=== PATIENT | female | born 1975 | race Caucasian/White ===

== ENCOUNTER 2018-04-17 14:51 | Emergency (ER) | payer OTHER, MEDICAID, SELFPAY ==
[2018-04-17 15:01] VITALS: BP 109/67; PULSE 69; RESP 20; TEMP 36.7; O2SAT 98; BMI 26.9
--- NOTE | 2018-04-17 15:01 | PC.NURSE ---
Dr Cartwright aware of pts sx
--- NOTE | 2018-04-17 15:16 | PC.NURSE ---
Pt denies chest pain, dizziness, or confusion, but states she feels foggy.
[2018-04-17 16:00] VITALS: BP 99/59; PULSE 75; RESP 16; O2SAT 98
--- NOTE | 2018-04-17 16:00 | DI.CT.S_ITS ---
PROCEDURE: CT HEAD/BRAIN WO CON INDICATIONS: left facial droop with left arm numbness no tpa TECHNIQUE: Noncontrast 4.5 mm thick angled axial sections acquired from the foramen magnum to the vertex, with coronal and sagittal reformats. For radiation dose reduction, the following was used: automated exposure control, adjustment of mA and/or kV according to patient size. COMPARISON: None. FINDINGS: Image quality: Excellent. CSF spaces: Basal cisterns are patent. No extra-axial fluid collections. Ventricles are normal in size and shape. Brain: No midline shift. No intracranial masses or hemorrhage. Wooten-white matter interface is normal. Skull and face: Calvarium and visualized facial bones are intact, without suspicious lesions. Sinuses: Visualized sinuses and mastoids are clear. IMPRESSION: No acute intracranial process. Dictated by: Jason Fowler M.D. on 04/17/2018 at 16:31 Approved by: Jason Fowler M.D. on 04/17/2018 at 16:32
--- NOTE | 2018-04-17 16:02 | DI.MRI.S_ITS ---
PROCEDURE: MR STROKE Pre- and post-contrast brain MRI, non-contrast brain MR angiogram, pre- and postcontrast neck MR angiogram INDICATIONS: left facial droop with left arm numbness no tPA candidate TECHNIQUE: Brain: Noncontrast axial T1 spin echo, axial T2 fast spin echo, sagittal and axial FLAIR, coronal T2 fast spin echo, axial gradient echo, axial diffusion and ADC through the brain. After the administration of contrast, axial 3D VIBE of the cranial vasculature and brain. Brain MRA: Non-contrast 3-D time of flight MR angiogram, with multiple qkesfcl-egswttrdg-cytqvvebzz (MIP) reformats performed. Neck MRA: Axial and sagittal TruFISP through the neck. Coronal dynamic MR angiogram during administration of contrast in the arterial and venous phases, with 3-dimenstional xhccxmr-mwajzxdee-otuanxcwbj (MIP) reformats constructed from subtraction images. COMPARISON: [facility], CT, CT HEAD/BRAIN WO CON, 04/17/2018, 16:06. FINDINGS: Image quality: Diagnostic. BRAIN: CSF spaces: Ventricles are normal in size and shape. Basal cisterns are patent. No extra-axial fluid collections. Brain: No intracranial bleeds or mass effects. Wooten-white matter interface is normal. Diffusion weighted images show no acute ischemic insults. Brainstem appears normal. Normal intravascular flow voids are present. No abnormal intracranial enhancement. Skull and face: Calvarial marrow signal is normal. Orbits appear normal. Sinuses: Sinuses and mastoids are clear. BRAIN MR ANGIOGRAM: Anterior circulation: Intracranial internal carotid arteries are normal in size and enhancement. The flow within the paired anterior cerebral arteries is normal and symmetric. The flow within the middle cerebral arteries is normal and symmetric. The anterior communicating artery is seen. No stenoses, occlusions, or aneurysms. Posterior circulation: The visualized portions of the vertebral arteries demonstrate normal caliber, and join to form a normal appearing basilar artery. The flow within the posterior cerebral arteries is normal and symmetric. No stenoses, occlusions, or aneurysms. NECK MR ANGIOGRAM: Carotids: Great vessels demonstrate a conventional anatomy as they arise from the aortic arch. The origins of the common carotid arteries appear patent. The calibers and courses of both common carotid arteries are normal. The bifurcation regions appear normal bilaterally. The internal carotid arteries demonstrate normal course and caliber. Posterior circulation: The origins of the vertebral arteries appear patent. More superior portions of both vertebral arteries demonstrate normal course and caliber, and join to form a normal appearing basilar artery. Miscellaneous: Subclavian arteries appear patent. Pre-contrast images through the neck show no soft tissue abnormalities. IMPRESSION: BRAIN MRI: 1. No acute intracranial hemorrhage or ischemia. 2. No parenchymal abnormalities or abnormal parenchymal enhancement. BRAIN MR ANGIOGRAM: Intracranial vessels are widely patent without areas of occlusion, high-grade narrowing, or vascular malformations. NECK MR ANGIOGRAM: Unremarkable vertebral and carotid arteries within the neck. No areas of narrowing, occlusion, or vascular malformation. Dictated by: Vasyl Cabral M.D. on 04/17/2018 at 16:08 Approved by: Vasyl Cabral M.D. on 04/17/2018 at 16:13
[2018-04-17 16:09] LABS: Hematocrit 37.7 % (36-46); Hemoglobin 12.7 g/dL (12.0-16.0); Mean Corpuscular HGB Conc 33.8 % (30-36); Mean Corpuscular Hemoglobin 28.2 PG (26-34); Mean Corpuscular Volume 83.6 fL (80-100); Platelet Count 337 X10^3/uL (150-400); Red Blood Cell Count 4.51 X10^6/uL (4.0-5.2); Red Cell Distribution Width 12.6 % (11.6-14.8); White Blood Cell Count 6.5 X10^3/uL (4.5-11.0)
[2018-04-17 16:11] LABS: INR 1.1 (0.9-1.3); Prothrombin Time 11.4 SECONDS (10.1-12.7)
[2018-04-17 16:14] LABS: PTT Partial Thromboplastin Tim 31 SECONDS (26.4-36.2)
[2018-04-17 16:15] LABS: Morphology Comment Normal Morphology; Neutrophils Absolute Manual 4290 /uL (3000-5900); RBC Morphology Normal Morphology; Total Cells Counted 100
[2018-04-17 16:16] LABS: Alanine Aminotransferase 34 IU/L (9-52); Albumin 4.5 g/dL (3.5-5.0); Albumin Globulin Ratio 1.5 (1.0-2.8); Alkaline Phosphatase 65 U/L (38-126); Aspartate Aminotransferase 22 IU/L (14-36); BUN Creatinine Ratio 21.4 (6-22); Bilirubin Total 0.6 mg/dL (0.2-1.3); Blood Urea Nitrogen 15 mg/dL (7-17); Calcium 8.6 mg/dL (8.4-10.2); Carbon Dioxide 22 mmol/L (22-32); Chloride 107 mmol/L (98-107); Estimated Glomerular Filt Rate > 60.0 mL/min (>60); Glucose 100 mg/dL (70-100); HEMOLYSIS < 15 (0-50); Potassium 3.6 mmol/L (3.4-5.1); Sodium 143 mmol/L (137-145); Total Protein 7.5 g/dL (6.3-8.2)
[2018-04-17 17:09] VITALS: BP 104/62; PULSE 88; RESP 15
--- NOTE | 2018-04-17 17:15 | ED.NEUROSD ---
HPI - Neuro Symptoms/Deficit General Chief Complaint: Neuro Symptoms/Deficit Stated Complaint: LEFT SIDE OF FACE DROOPY,ARM TINGLY Time Seen by Provider: 04/17/18 15:30 Source: patient and family Mode of arrival: ambulatory Limitations: no limitations History of Present Illness HPI Narrative: Patient is a 42-year-old female who presents with left facial drooping and left eye twitching along with left arm numbness. She woke up this morning in her noticed that her left eye was blinking more slowly than her right eye. She has had some left facial droop. She started to notice that she had taste buds that were different all while she was eating her sandwich at lunch today. She then started to notice that her left arm became numb and weaker than her right. No difficulty speaking or walking. She was sent here for further evaluation. She is able to close her eyes fully. She has no blurry or double vision. On Anticoagulants: No Related Data Home Medications Medication Instructions Recorded Confirmed Control Pill 1 tab PO DAILY 04/17/18 04/17/18 Previous Rx's Medication Instructions Recorded artifi.tears(hypromellose)(PF) 1 drop EYE-BOTH Q4-6H PRN #10 ml NS 04/17/18 prednisone 50 mg PO DAILY 5 Days tab 04/17/18 Allergies Allergy/AdvReac Type Severity Reaction Status Date / Time Penicillins Allergy Verified 04/17/18 15:49 Review of Systems Review of Systems All systems reviewed & are unremarkable except as noted in HPI and below Constitutional Denies chills, Denies fever(s), Denies lethargy and Denies weakness Eyes Reports as per HPI ENT Ears, Nose, Mouth, and Throat: Denies change in voice, Denies neck pain and Denies sore throat Cardiovascular Denies chest pain, Denies irregular heart rhythm, Denies lightheadedness, Denies palpitations, Denies dyspnea, Denies dyspnea on exertion and Denies orthopnea Respiratory Denies cough, Denies dyspnea, Denies dyspnea on exertion and Denies wheezing Gastrointestinal Gastrointestinal: Denies abdominal pain, Denies change in bowel habits, Denies diarrhea, Denies nausea and Denies vomiting Musculoskeletal Denies deformity, Denies joint swelling and Denies neck pain Neurologic Reports system reviewed and no additional complaints, except as docu, Reports as per HPI and Denies weakness Endocrine Denies palpitations Allergic/Immunologic Denies wheezing [facility] Social History Smoking Status: Never smoker Exam Initial Vital Signs Initial Vital Signs: Vital Signs Temperature 98.0 F 04/17/18 15:01 Pulse Rate 69 04/17/18 15:01 Respiratory Rate 20 04/17/18 15:01 Blood Pressure 109/67 04/17/18 15:01 Pulse Oximetry 98 04/17/18 15:01 Const General: cooperative and well developed Nutritional Appearance: well nourished Orientation: alert, awake, oriented x3 and not confused [facility] Head: other (For head equal bilaterally eye brows equal bilaterally) Ears: external ears normal Face and sinus: face asymmetric (Left facial drooping with flattening of nasal fold) Eyes Visual Vu: normal visual vu by confrontation Alignment and Position: alignment normal Eyelids: eyelid abnormality (Able to close left eye but not as tight as the right) Pupils: PERRL EOM: EOM intact bilaterally Neck Neck: full ROM and no meningeal signs Resp Effort & Inspection: normal respiratory effort, able to speak in complete sentences, no respiratory distress and no use of accessory muscles Auscultation: clear to auscultation bilaterally, no rales, no rhonchi and no wheezes Cardio Rate: regular rate Rhythm: regular rhythm Heart Sounds: no click, no gallops, no murmurs and no rubs Pulses: normal peripheral pulses GI Inspection: non-distended Palpation: soft, no hepatosplenomegaly, No guarding, No pulsatile mass and No tender Auscultation: normal bowel sounds Skin General: no rashes or lesions noted, No jaundice and No petechiae Neuro General: alert, oriented x3, gait normal and no focal motor deficits Cranial Nerves: CN's II-XI intact bilaterally and EOM intact bilaterally Speech: speech normal Motor: muscle tone normal throughout and strength 5/5 throughout Sensory Exam: no sensory deficits noted Coordination: xieeeh-py-ykhl test normal and xxmv-it-pcsc test normal Extrem General: normal to inspection, full ROM and no clubbing, cyanosis or edema Scores NIH Stroke Scale Level of Conciousness: Alert, keenly responsive Ask month/age: Answers both questions correctly. Open/close eyes, close hand: Performs both tasks correctly Best gaze horizontal: Normal Visual vu: No visual loss Facial palsy: Minor paralysis, flattened nasolabial fold, asymmetry on smiling Left arm drift: No drift for full 10 sec Right arm drift: No drift for full 10 sec Left leg drift: No drift for full 10 sec Right leg drift: No drift for full 10 sec Limb ataxia: Absent Sensory on face/arms/legs: Normal, no sensory loss Best language: No aphasia, normal Dysarthria: Normal Extinction or inattention: No abnormality Total NIH Stroke scale score: 1 Course Orders Ordered: ED Orders 04/17/18 15:20 Complete Blood Count MAN DIFF Stat Comprehensive Metabolic Panel Stat Partial Thromboplastin Time Stat Prothrombin Time INR Stat 04/17/18 16:00 CT head/brain wo con Stat EKG-12 Lead Stat 04/17/18 16:02 MR stroke Stat Vital Signs - 8 hr 04/17/18 15:01 04/17/18 16:00 04/17/18 17:09 Temperature 98.0 F Pulse Rate 69 75 88 Respiratory Rate 20 16 15 Blood Pressure 109/67 Blood Pressure [Left Arm] 99/59 L 104/62 Pulse Oximetry 98 98 04/17/18 17:35 Temperature Pulse Rate 71 Respiratory Rate 13 Blood Pressure Blood Pressure [Left Arm] 106/66 Pulse Oximetry 99 MDM - Neuro Symptoms/Deficit Lab Data Result diagrams: 04/17/18 15:20 04/17/18 15:20 Lab Results 04/17/18 04/17/18 04/17/18 Range/Units 15:20 15:20 15:20 WBC 6.5 (4.5-11.0) X10^3/uL RBC 4.51 (4.0-5.2) X10^6/uL Hgb 12.7 (12.0-16.0) g/dL Hct 37.7 (36-46) % MCV 83.6 (80-100) fL MCH 28.2 (26-34) PG MCHC 33.8 (30-36) % RDW 12.6 (11.6-14.8) % Plt Count 337 (150-400) X10^3/uL Total Counted 100 Seg Neutrophils % 66.0 (38-70) % Lymphocytes % (Manual) 22.0 L (25-45) % Monocytes % (Manual) 8.0 (2-11) % Eosinophils % (Manual) 4.0 (2-4) % Neutrophils # (Manual) 4290 (5634-0932) /uL Differential Comment Normal morphology RBC Morphology Normal morphology PT 11.4 (10.1-12.7) SECONDS INR 1.1 (0.9-1.3) APTT 31 (26.4-36.2) SECONDS Sodium 143 (137-145) mmol/L Potassium 3.6 (3.4-5.1) mmol/L Chloride 107 (98-107) mmol/L Carbon Dioxide 22 (22-32) mmol/L BUN 15 (7-17) mg/dL Creatinine 0.70 (0.52-1.04) mg/dL Estimated GFR > 60.0 (>60) mL/min BUN/Creatinine Ratio 21.4 (6-22) Glucose 100 (70-100) mg/dL Calcium 8.6 (8.4-10.2) mg/dL Total Bilirubin 0.6 (0.2-1.3) mg/dL AST 22 (14-36) IU/L ALT 34 (9-52) IU/L Alkaline Phosphatase 65 (38-126) U/L Total Protein 7.5 (6.3-8.2) g/dL Albumin 4.5 (3.5-5.0) g/dL Globulin 3.0 (1.7-4.1) g/dL Albumin/Globulin Ratio 1.5 (1.0-2.8) Imaging Data CT scan - head: Radiologist's impression: PROCEDURE: CT HEAD/BRAIN WO CON INDICATIONS: left facial droop with left arm numbness no tpa TECHNIQUE: Noncontrast 4.5 mm thick angled axial sections acquired from the foramen magnum to the vertex, with coronal and sagittal reformats. For radiation dose reduction, the following was used: automated exposure control, adjustment of mA and/or kV according to patient size. COMPARISON: None. FINDINGS: Image quality: Excellent. CSF spaces: Basal cisterns are patent. No extra-axial fluid collections. Ventricles are normal in size and shape. Brain: No midline shift. No intracranial masses or hemorrhage. Wooten-white matter interface is normal. Skull and face: Calvarium and visualized facial bones are intact, without suspicious lesions. Sinuses: Visualized sinuses and mastoids are clear. IMPRESSION: No acute intracranial process. MRI stroke: Radiologist's impression: PROCEDURE: MR STROKE Pre- and post-contrast brain MRI, non-contrast brain MR angiogram, pre- and postcontrast neck MR angiogram INDICATIONS: left facial droop with left arm numbness no tPA candidate TECHNIQUE: Brain: Noncontrast axial T1 spin echo, axial T2 fast spin echo, sagittal and axial FLAIR, coronal T2 fast spin echo, axial gradient echo, axial diffusion and ADC through the brain. After the administration of contrast, axial 3D VIBE of the cranial vasculature and brain. Brain MRA: Non-contrast 3-D time of flight MR angiogram, with multiple saedxse-lrpuhilts-valjofxkzt (MIP) reformats performed. Neck MRA: Axial and sagittal TruFISP through the neck. Coronal dynamic MR angiogram during administration of contrast in the arterial and venous phases, with 3-dimenstional lhxavyb-magpnolir-oxurqaxpnm (MIP) reformats constructed from subtraction images. COMPARISON: [facility], CT, CT HEAD/BRAIN WO CON, 04/17/2018, 16:06. FINDINGS: Image quality: Diagnostic. BRAIN: CSF spaces: Ventricles are normal in size and shape. Basal cisterns are patent. No extra-axial fluid collections. Brain: No intracranial bleeds or mass effects. Wooten-white matter interface is normal. Diffusion weighted images show no acute ischemic insults. Brainstem appears normal. Normal intravascular flow voids are present. No abnormal intracranial enhancement. Skull and face: Calvarial marrow signal is normal. Orbits appear normal. Sinuses: Sinuses and mastoids are clear. BRAIN MR ANGIOGRAM: Anterior circulation: Intracranial internal carotid arteries are normal in size and enhancement. The flow within the paired anterior cerebral arteries is normal and symmetric. The flow within the middle cerebral arteries is normal and symmetric. The anterior communicating artery is seen. No stenoses, occlusions, or aneurysms. Posterior circulation: The visualized portions of the vertebral arteries demonstrate normal caliber, and join to form a normal appearing basilar artery. The flow within the posterior cerebral arteries is normal and symmetric. No stenoses, occlusions, or aneurysms. NECK MR ANGIOGRAM: Carotids: Great vessels demonstrate a conventional anatomy as they arise from the aortic arch. The origins of the common carotid arteries appear patent. The calibers and courses of both common carotid arteries are normal. The bifurcation regions appear normal bilaterally. The internal carotid arteries demonstrate normal course and caliber. Posterior circulation: The origins of the vertebral arteries appear patent. More superior portions of both vertebral arteries demonstrate normal course and caliber, and join to form a normal appearing basilar artery. Miscellaneous: Subclavian arteries appear patent. Pre-contrast images through the neck show no soft tissue abnormalities. IMPRESSION: BRAIN MRI: 1. No acute intracranial hemorrhage or ischemia. 2. No parenchymal abnormalities or abnormal parenchymal enhancement. BRAIN MR ANGIOGRAM: Intracranial vessels are widely patent without areas of occlusion, high-grade narrowing, or vascular malformations. NECK MR ANGIOGRAM: Unremarkable vertebral and carotid arteries within the neck. No areas of narrowing, occlusion, or vascular malformation. ECG Data Attestation: I personally reviewed and interpreted this ECG as follows: Prior ECG tracings: not available for review Interpretation: Normal sinus rhythm rate 68 no acute ischemia no ST changes MDM Narrative Medical decision making narrative: On reassessment patient is still able to close her left eye but it really is not as tight as the right eye. He believes this to be more of Espinosa's rather than a CVA. Her MRI is normal. 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 Sensation is intact and equal on both sides. Her left eye is definitely in blinking more slowly than her right. This really seemed more of a Espinosa's palsy presentation rather than CVA. I have discussed both options with patient and . The she has had a complete workup. Have been addressed. She is out of the window for tPA, no large vessel occlusion been identified, or any occlusion for that matter. Discharge Plan Departure Patient Disposition: Home, Self-Care Clinical Impression: Espinosa's palsy Discharge Date/Time: 04/17/18 18:33 Interventions: ED Discharge Assessment Last Done: 04/17/18 18:33 Instructions: DI for Espinosa's Palsy Activity Restrictions/Additional Instructions: *You have been diagnosed with Espinosa's palsy *What to do: Should spontaneously improve in the next 2-3 weeks *Continue to take medications as directed -use eye drops while awake -prednisone once a day for the next 5 days helps with inflammation of nerve *Follow up with your primary care provider in 2-3 days *Return to ER if you should have increasing weakness of arm or hand, or any extremity or any new, worsening or concerning symptoms Prescriptions: New prednisone 50 mg tablet 50 mg PO DAILY 5 Days RF: 0 artifi.tears(hypromellose)(PF) 0.3 % drops 1 drop EYE-BOTH Q4-6H PRN (Reason: dry eye(s)) Qty: 10 RF: 0 No Action Control Pill 1 tab PO DAILY RF: 0 Referrals: Andre Lozano MD [Primary Care Provider] -
[2018-04-17 17:35] VITALS: BP 106/66; PULSE 71; RESP 13; O2SAT 99
[2018-04-17 18:20] VITALS: BP 106/71; PULSE 72; O2SAT 98
== END 2018-04-17 18:33 | disposition home or self-care (01) ==
PROVIDERS: Emergency Provider Emergency Medicine; PCP Family Medicine
DX: G51.0 Bell's palsy (principal)
CPT/HCPCS: 36591; 70450; 70553; 80053; 81003; 81025; 85025; 85610; 85730; 93005; 99283; 99285; 99291; A9579

== ENCOUNTER → 2020-09-08 09:10 | Outpatient (CLI) | payer OTHER, MEDICAID, SELFPAY ==
--- NOTE | 2020-09-08 | DI.MG.S_ITS ---
BILATERAL DIGITAL DIAGNOSTIC MAMMOGRAM 3D/2D WITH AUGMENTATION: 09/08/2020 CLINICAL: Left breast lump. Baseline exam. Baseline exam. No prior exams were available for comparison. The tissue of both breasts is heterogeneously dense. This may lower the sensitivity of mammography. Patient is breast feeding. Bilateral retropectoral saline implants are intact. No significant masses, calcifications, or other findings are seen in either breast. No mass in the region of the palpable abnormality in the upper inner left breast. IMPRESSION: INCOMPLETE: NEEDS ADDITIONAL IMAGING EVALUATION No mammographic evidence of malignancy. A targeted ultrasound is recommended and will immediately follow for the left breast palpable abnormality. This exam was interpreted at Station ID: [id number]. NOTE: For mammograms, a report in lay terms will be sent to the patient. Approximately 15% of breast malignancies will not be visualized mammographically. In the management of a palpable breast mass, a negative mammogram must not discourage biopsy of a clinically suspicious lesion. Electronically Signed By: Kiko Gramajo M.D. slc/:09/08/2020 11:08:23 ACR BI-RADS Category 0: Incomplete [id number]
--- NOTE | 2020-09-08 10:41 | DI.US.S_ITS ---
Patient Name: ALLAN LOCKE date: 1975 Sex: F Attending Physician: Eric Indications: Date: 09/08/2020 10:49 At the request of: VIOLETA BENNETT Procedure: US breast LT limited LIMITED ULTRASOUND OF LEFT BREAST: 09/08/2020 CLINICAL: Palpable left breast lump and focal pain. Comparison is made to exam dated: 09/08/2020 [facility]. Color flow and real-time ultrasound of the left breast 10 o'clock, and retroareolar regions were performed. Wooten scale images of the real-time examination were reviewed. No significant abnormalities were seen sonographically in the left breast in the region of the palpable abnormality. No mass or galactocele. IMPRESSION: NEGATIVE There is no sonographic evidence of malignancy. No mass or galactocele. A 1 year screening mammogram is recommended. Exam findings were conveyed to the patient. Patient is advised to monitor for significant change. This exam was interpreted at Station ID: [id number]. Electronically Signed By: Kiko Gramajo M.D. slc/:09/08/2020 11:30:09 letter sent: Normal Exam Ultrasound BI-RADS: 1 Negative
== END ==
PROVIDERS: PCP Nurse Practitioner Family; Referring Provider Nurse Practitioner Family; Visit Provider Nurse Practitioner Family
DX: R92.8 Other abnormal and inconclusive findings on diagnostic imaging of breast (principal); N63.22 Unspecified lump in the left breast, upper inner quadrant; Z98.82 Breast implant status
CPT/HCPCS: 76642; 77066; G0279

== ENCOUNTER → 2021-09-07 10:45 | Outpatient (CLI) | payer OTHER, MEDICAID, SELFPAY ==
--- NOTE | 2021-09-07 10:51 | DI.CT.S_ITS ---
PROCEDURE: CT ANGIO CHEST INDICATIONS: CHEST PAIN TECHNIQUE: After the administration of intravenous contrast, 2 mm thick sections acquired from the pulmonary apices to the posterior costophrenic angles. 3-dimensional maximum intensity projection (MIP) coronal and sagittal reformats were then acquired through the thorax. For radiation dose reduction, the following was used: automated exposure control, adjustment of mA and/or kV according to patient size. COMPARISON: None. FINDINGS: Image quality: Excellent. Pulmonary arteries: Pulmonary arteries are normal in size, and demonstrate no intraluminal filling defects to suggest central pulmonary embolism. Lungs and pleura: There is a 4 mm nodule in the right middle lobe (series 6, image 164). A 2 mm nodule is seen in the right major fissure (series 6, image 238). Lungs are clear. No pleural effusions or pneumothorax. Central and peripheral airways are patent. Mediastinum: Heart size is normal, without pericardial effusion. No mediastinal or hilar adenopathy. Thoracic aorta is normal in caliber and enhancement. Esophagus is normal in caliber. Small hiatal hernia. Bones and chest wall: No suspicious bony lesions. Ribs and thoracic spine appear intact throughout. Thyroid gland is normal. No axillary or supraclavicular adenopathy by size criteria. A prominent subcentimeter right axillary lymph node is likely reactive. Note is made of bilateral breast implants. Abdomen: Visualized upper abdominal solid organs appear normal in the early arterial phase of enhancement. IMPRESSION: 1. No evidence for pulmonary embolism. 2. There is a 4 mm nodule in the right middle lobe and a 2 mm nodule in the right middle fissure. Please see enclosed follow-up recommendation. 3. Small hiatal hernia. Fleischner Society criteria for SOLID lung nodule followup. Nodule size (mm)Low-risk patientHigh-risk patient?4No follow-up neededFollow-up at 12 mo; if no change, no further follow-up>9-5Dcyyhw-um CT at 12 mo; if no change, no further follow-up needed.Initial follow-up CT at 6-12 mo, then 18-24 mo if no change. >6-8Initial follow-up CT at 6-12 mo, then 18-24 mo if no change. Initial follow-up CT at 3-6 mo, then 9-12 mo and 24 mo if no change. >8Follow-up CT at 3, 9, 24 mo. Or PET and/or biopsy.Same as for low-risk pts. Dictated by: Brenda Nur M.D. on 09/07/2021 at 11:53 Approved by: Brenda Nur M.D. on 09/07/2021 at 12:02
== END ==
PROVIDERS: PCP Nurse Practitioner Family; Referring Provider Family Medicine; Visit Provider Family Medicine
DX: R07.9 Chest pain, unspecified (principal); R91.1 Solitary pulmonary nodule; K44.9 Diaphragmatic hernia without obstruction or gangrene
CPT/HCPCS: 71275; Q9967

== ENCOUNTER 2023-02-04 18:58 | Emergency (ER) | payer OTHER, MEDICAID, SELFPAY ==
[2023-02-04] VITALS (7 sets, daily range): BP systolic 96–118; BP diastolic 51–83; PULSE 73–84; RESP 14–16; TEMP 36.2; O2SAT 96–100; BMI 27.6
--- NOTE | 2023-02-05 00:41 | ED.ALLEREA ---
HPI - Allergic Reaction General Chief complaint: Allergic Reaction Stated complaint: allergic reaction Time Seen by Provider: 02/04/23 19:01 Source: patient and EMS Mode of arrival: EMS History of Present Illness HPI narrative: 47-year-old female nonsmoker with noncontributory medical history presents by air medical transport for evaluation a significant allergic reaction earlier today. It is unclear exactly what her trigger was but about 1 hour prior to her arrival here she developed widespread hives, most notable on upper extremities chest and back as well as significant swelling of her face and lips and felt some fullness in her throat. She was given epinephrine, diphenhydramine and an H2 quiana prior to her arrival and symptoms had nearly completely resolved. At no point has she had any GI symptoms such as nausea, vomiting or diarrhea. She denies any history of anaphylaxis. She states she was exposed to known new foods, pets, lotions, soaps or other obvious trigger Related Data Home Medications Medication Instructions Recorded Confirmed Control Pill 1 tab PO DAILY 04/17/18 04/17/18 Previous Rx's Medication Instructions Recorded artifi.tears(hypromellose)(PF) 0.3 1 drop EYE-BOTH Q4-6H PRN dry 04/17/18 % eye drops eye(s) #10 mL epinephrine 0.3 mg/0.3 mL 0.3 mg (0.3 mL) IM Q5-15M PRN 02/05/23 injection, auto-injector (EpiPen anaphylaxis #2 ea 2-Benjamin) prednisone 10 mg tablet See Rx Instructions .Route 02/05/23 .COMPLEX #30 tabs Allergies Allergy/AdvReac Type Severity Reaction Status Date / Time Penicillins Allergy Verified 04/17/18 15:49 Review of Systems Review of Systems Narrative: GENERAL: Denies chills, fatigue, malaise, fever, sweats. HEENT: See HPI RESPIRATORY: Denies dyspnea, cough, wheezing, hemoptysis, sputum. CARDIOVASCULAR: Denies chest pain, palpitations, orthopnea, edema, GASTROINTESTINAL: Denies nausea, vomiting, abdominal pain, diarrhea, constipation, melena. : Denies dysuria, frequency, incontinence, hematuria, urinary retention. MUSCULOSKELETAL: denies weakness, joint pain, or bony pain SKIN: See HPI NEUROLOGIC: Denies weakness, headache, numbness, change in speech, confusion, seizures, incoordination. PSYCHIATRIC: No concerning psychosocial issues. 12 point review of systems is negative except for those stated above Patient History Social History Smoking Status: Never smoker Smoking Status: Never smoker alcohol intake frequency: 0-2 drinks per day Substance Use Type: does not use Exam Narrative Exam Narrative: GENERAL: [47] year old patient appears stated age. Well-developed patient, in mild distress. HEAD: Atraumatic. Normocephalic. EYES: Pupils equal round and reactive. Extraocular motions intact. No scleral icterus. No injection or drainage. ENT: Nose without bleeding, purulent drainage. Throat without erythema, tonsillar hypertrophy or exudate. Airway patent. NECK: Trachea midline. Non tender CARDIOVASCULAR: Regular rate and rhythm without murmurs, gallops, or rubs. RESPIRATORY: Clear to auscultation. Breath sounds equal bilaterally. No wheezes, rales, or rhonchi. GASTROINTESTINAL: Abdomen soft, non-tender, nondistended. EXTREMITIES: No edema or joint tenderness. BACK: Nontender without deformity or crepitance. No flank tenderness. NEURO: AOx3. SKIN: No rash or erythema of visible areas Initial Vital Signs Initial Vital Signs: Vital Signs Temperature 97.1 F L 02/04/23 19:00 Pulse Rate 84 02/04/23 19:00 Respiratory Rate 16 02/04/23 19:00 Blood Pressure 118/81 02/04/23 19:00 Pulse Oximetry 99 02/04/23 19:00 Oxygen Delivery Method Room Air 02/04/23 19:00 Course Vital Signs Vital signs: Vital Signs - 8 hr 02/04/23 19:00 02/04/23 19:03 02/04/23 19:04 Temperature 97.1 F L Pulse Rate 84 83 Respiratory Rate 16 Blood Pressure 118/81 118/83 Pulse Oximetry 99 96 Oxygen Delivery Method Room Air 02/04/23 19:04 02/04/23 19:30 02/04/23 19:31 Temperature Pulse Rate 77 79 Respiratory Rate Blood Pressure 96/51 L Pulse Oximetry 100 97 Oxygen Delivery Method 02/04/23 19:31 02/04/23 20:00 02/04/23 20:00 Temperature Pulse Rate 79 76 Respiratory Rate Blood Pressure 106/61 Pulse Oximetry 97 97 Oxygen Delivery Method 02/04/23 20:30 02/04/23 20:30 Temperature Pulse Rate 73 Respiratory Rate 14 Blood Pressure 100/59 L Pulse Oximetry 98 Oxygen Delivery Method Room Air MDM - Allergic Reaction MDM Narrative Medical decision making narrative: CC: 47F with anaphylaxis, largely resolved prior to arrival Complicating co-morbidities: none known Data collected from: Patient Medical records reviewed: Prior notes reviewed in our EMR Differential considered, but not limited to: anaphylaxis vs. other Exam documented above, pertinent findings include: No tongue, face, lip or throat swelling, no rash, no increased work of breathing or wheezing. Re-evaluations: Patient re-evaluated on multiple occasions, she is observed for 6 hours beyond the point at which she had been given epinephrine, there is no evidence of recurrence of symptoms or rebound. Discussion: Patient with anaphylactic reaction, resolved prior to arrival based on excellent recognition, and treatment by pre-hospital care. Observed for 6 hours and no recurrence of symptoms. Patient given prescriptions as noted, encouraged to continue the use of [id number] antihistamines and follow closely with her primary care provider. She is given extensive return precautions Disposition: see below, along with detailed discharge instructions that have been reviewed with patient as well as indications for ED re-evaluation and additional outpatient follow up Discharge Plan Departure Patient Disposition: Home Clinical Impression: Allergic reaction Instructions: DI for Anaphylaxis Activity Restrictions/Additional Instructions: *You have been diagnosed with [allergic reaction] *What to do: *Please continue to take your regular medications as directed. [ ] New medication prescriptions sent to your pharmacy: [ ] [x ] New medication written as a paper prescription [ ] No new medications given *Please consider the routine use of over the counter antihistamines over the next few days 1. H1 blockers: Benadryl (Diphenhydramine), Zyrtec (Cetirizine), Zoe (Fexofenadine) or Claritin (Loratadine) along with, 2. H2 blockers: Famotidine or Cimetidine *If you can please avoid what triggered your reaction today *Please follow up with your primary care provider in 2-3 days, call for an appointment. Let them know you were seen in the Emergency Department and that we ask that you be seen in follow up. We will electronically transmit a record of today's note if your PCP is in our system *If you do not have a primary care provider please contact the [facility] Resource line at [phone]. They will ask some questions about your medical history and help get you set up with a doctor in the community. *Return to Emergency Department if you should have any new, worsening or concerning symptoms, such as swelling of tongue, throat, trouble breathing, or other concerning symptoms Prescriptions: New prednisone 10 mg tablet See Rx Instructions .ROUTE .COMPLEX Qty: 30 0RF Rx Instructions: Day 1,2,3: 40mg PO Daily Day 4,5,6: 30mg PO Daily Day 7,8,9: 20mg PO Daily Day 10,11,12: 10mg PO Daily #30 epinephrine [EpiPen 2-Benjamin] 0.3 mg/0.3 mL auto-injector 0.3 mg IM Q5-15M PRN (Reason: anaphylaxis) Qty: 2 0RF Rx Instructions: do not exceed 3 doses per episode No Action Control Pill 1 tab PO DAILY artifi.tears(hypromellose)(PF) 0.3 % drops 1 drop EYE-BOTH Q4-6H PRN (Reason: dry eye(s)) Qty: 10 0RF Referrals: Alma Reyes ARNP [Primary Care Provider] - Stand Alone Forms: Patient Portal/API
[2023-02-05 00:42] VITALS: BP 116/59; PULSE 78; RESP 18; O2SAT 97
== END 2023-02-05 00:49 | disposition home or self-care (01) ==
PROVIDERS: Emergency Provider Emergency Medicine; PCP Nurse Practitioner Family
DX: T78.40XA Allergy, unspecified, initial encounter (principal)
CPT/HCPCS: 99281

== ENCOUNTER → 2024-04-22 14:27 | Outpatient (CLI) | payer OTHER, MEDICAID, SELFPAY ==
--- NOTE | 2024-04-22 | DI.MG.S_ITS ---
BILATERAL DIGITAL SCREENING MAMMOGRAM 3D/2D WITH CAD WITH AUGMENTATION: 04/22/2024 CLINICAL: Routine screening. Family history of breast cancer. Comparison is made to exams dated: 09/08/2020 ultrasound and 09/08/2020 mammogram - [facility]. Both breasts are heterogeneously dense, which may obscure small masses (category c / 51-75% glandular tissue). Current study was also evaluated with a Computer Aided Detection (CAD) system. Bilateral breast implants are stable and intact. No significant masses, calcifications, or other findings are seen in either breast. There has been no significant interval change. IMPRESSION: NEGATIVE There is no mammographic evidence of malignancy. A 1 year screening mammogram is recommended. Based on Tyrer-Cuzick model (a risk assessment model), the patient's lifetime risk is 24.3% and her 10 year risk is 5.6%. If a patient has an elevated risk, a more comprehensive evaluation should be considered and/or a referral to a genetic counselor. The [place] [employer], [employer], and NCCN Guidelines advise the consideration of Breast MRI as an adjunct to screening mammography in patients whose Lifetime risk to develop breast cancer is 20% or higher. This exam was interpreted at Station ID: [id number]. NOTE: For mammograms, a report in lay terms will be sent to the patient. Approximately 15% of breast malignancies will not be visualized mammographically. In the management of a palpable breast mass, a negative mammogram must not discourage biopsy of a clinically suspicious lesion. Electronically Signed By: Aparna fu/phi:04/22/2024 15:57:48 letter sent: Normal Exam ACR BI-RADS Category 1: Negative 3341F
== END ==
PROVIDERS: PCP Family Medicine; Referring Provider Family Medicine; Visit Provider Family Medicine
DX: Z12.31 Encounter for screening mammogram for malignant neoplasm of breast (principal); Z80.3 Family history of malignant neoplasm of breast; R92.333 Mammographic heterogeneous density, bilateral breasts
CPT/HCPCS: 77063; 77067

== ENCOUNTER → 2024-11-27 13:11 | Outpatient (CLI) | payer OTHER, SELFPAY ==
--- NOTE | 2024-11-27 13:12 | DI.MRI.S_ITS ---
PROCEDURE: MR SHOULDER LT WO CON INDICATIONS: NECK PAIN,PARESTHESIA LEFT SIDE,DDD TECHNIQUE: Noncontrast oblique coronal T2 fast spin echo with fat saturation, oblique sagittal T1 spin echo and T2 fast spin echo with fat saturation, axial T1 spin echo and T2 fast spin echo with fat saturation through the shoulder. COMPARISON: None. FINDINGS: Image quality: Excellent. Rotator cuff: Moderate supraspinatus and infraspinatus tendinosis. Low-grade bursal surface fraying without significant tearing. Teres minor and subscapularis tendons are intact. There is increased T2-weighted signal within the supraspinatus, infraspinatus, and teres minor muscles. No mass is seen in the suprascapular or spinoglenoid notch or along the course of the axillary nerve. Subscapularis muscle is normal in signal and bulk. Mild edema within the overlying deltoid muscle. Bones and bursae: No acute trabecular bone injury or fracture. Small chronic traction cystic changes at the posterior superior humeral head. No focal glenohumeral cartilage defect. Qeqr-[id number]-ybwemxvt degenerative changes at the acromioclavicular joint. Small amount of fluid is seen in the subacromial/subdeltoid bursa. No significant glenohumeral effusion. Capsule and soft tissues: Chronic nondisplaced tearing at the posterior superior labrum. Proximal biceps long head tendon is intact. There is partial effacement of the fat signal in the rotator interval. Anterior band inferior glenohumeral ligament appears mildly thickened. IMPRESSION: 1. Increased signal within the supraspinatus, infraspinatus, teres minor muscles as well as the deltoid muscle may be related to low-grade muscle strains versus early denervation changes or [place] Riggs syndrome. 2. Moderate supraspinatus and infraspinatus tendinosis with low-grade bursal surface fraying but no significant tearing. 3. Chronic nondisplaced tearing of the posterior superior labrum. 4. Dwvj-kd-suqweubt acromioclavicular joint osteoarthrosis. 5. Partial effacement of the rotator interval fat and mild thickening of the inferior glenohumeral ligament are nonspecific, but can be seen in the setting of the clinical syndrome of adhesive capsulitis. Approved by: Tre Louise M.D. on 11/27/2024 at 21:38
--- NOTE | 2024-11-27 13:12 | DI.MRI.S_ITS ---
PROCEDURE: MR CERVICAL SPINE WO CON INDICATIONS: NECK PAIN,PARESTHESIA LEFT SIDE,DDD TECHNIQUE: Noncontrast sagittal T1 spin echo and T2 fast spin echo, sagittal STIR, foraminal oblique sagittal T2 fast spin echo, and axial gradient echo or T2 fast spin echo through the cervical spine. COMPARISON: None. FINDINGS: Image quality: Excellent. Alignment and Curvature: There is trace retrolisthesis C5 on C6. Bone Marrow: Marrow demonstrates normal overall signal. Spinal Cord: Visualized spinal cord has normal size and signal. No cerebellar tonsillar herniation. Paraspinous Soft Tissues: No paravertebral masses. Prevertebral soft tissues are normal in thickness. C2-C3: No disc bulge, spinal stenosis or foraminal narrowing. C3-C4: Minimal disc bulge without spinal stenosis or foraminal narrowing. C4-C5: Minimal disc bulge with effacement of the anterior thecal sac. No foraminal narrowing. C5-C6: Mild disc bulge with superimposed posterior central protrusion. Mild to moderate spinal stenosis. Questionable minimal left foraminal narrowing. C6-C7: Minimal disc bulge without spinal stenosis or foraminal narrowing. C7-T1: No disc bulge, spinal stenosis or foraminal narrowing. IMPRESSION: Early degenerative changes demonstrating scattered areas of disc bulge with early spinal stenosis and foraminal narrowing most notable at C5-6. Dictated by: Analy Renee M.D. on 11/29/2024 at 16:00 Approved by: Analy Renee M.D. on 11/29/2024 at 16:02
== END ==
PROVIDERS: PCP Family Medicine; Referring Provider Family Medicine; Visit Provider Family Medicine
DX: R20.2 Paresthesia of skin (principal); M25.512 Pain in left shoulder; G89.29 Other chronic pain; R29.898 Other symptoms and signs involving the musculoskeletal system; M50.30 Other cervical disc degeneration, unspecified cervical region; S43.432A Superior glenoid labrum lesion of left shoulder, initial encounter; M19.012 Primary osteoarthritis, left shoulder; M50.323 Other cervical disc degeneration at C6-C7 level; M48.02 Spinal stenosis, cervical region
CPT/HCPCS: 72141; 73221